=== PATIENT | male | born 1975 | race Caucasian/White ===

== ENCOUNTER 2016-04-26 18:28 | Emergency (ER) | payer OTHER ==
[2016-04-26 18:45] VITALS: BP 96/59; PULSE 97; RESP 14; O2SAT 95
[2016-04-26] MEDS ORDERED: IBUPROFEN 200 MG TAB PO ONE (19:08)
[2016-04-26] MEDS ORDERED: OSELTAMIVIR PHOSPHATE 75 MG CAP PO ONE (19:16)
[2016-04-26] MEDS ORDERED: ACETAMINOPHEN 325 MG TAB PO ONE (19:16)
[2016-04-26 19:46] LABS: COLOR YELLOW; LEUKOCYTE ESTERASE,URINE NEGATIVE (NEGATIVE); NITRITE,URINE NEGATIVE (NEGATIVE)
[2016-04-26 19:54] LABS: MUCUS 1+ /lpf (NONE-1+); RBC,URINE >182 /hpf (0-3); WBC,URINE NONE SEEN /hpf (0-3)
[2016-04-26 19:55] LABS: ANION GAP 11 mEq/L (8-16); CALCIUM 9.7 mg/dL (8.5-10.4); CARBON DIOXIDE 29 mEq/l (22-31); CHLORIDE 98 mEq/L (97-110); CREATININE 1.1 mg/dL (0.7-1.3); GLOMERULAR FILTRATION RATE > 60; GLUCOSE 105 mg/dL (70-100); POTASSIUM 3.9 mEq/L (3.5-5.2); SODIUM 138 mEq/L (134-144)
--- NOTE | 2016-04-26 20:16 | UCPHY ---
H & P Time Seen by Provider: 04/26/16 19:05 Patient Type: New HPI/ROS: This patient has nasal congestion, cough, myalgias, high fevers and fatigue. 2 family members or diagnosed with influenza over this past week. He is concerned about these symptoms because he has a history of IgA nephropathy and times of previous viral illnesses has had worsening of his nephropathy. 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 ROS: Constitutional: As per HPI with no other complaints HEENT: No facial pain. No ear pain. No throat pain. Pulmonary: No respiratory distress or pleuritic pain cardiovascular: No lightheadedness GI: No vomiting. : No hematuria noted. He does report his urine is darker than usual. He has no flank pain 10 point ROS is otherwise negative. Past Medical/Surgical History: IgA nephropathy Smoking Status: Never smoked Physical Exam: General Appearance: Pleasant male Alert, no distress. Eyes: Pupils equal and round no pallor or injection. ENT, Mouth: Mucous membranes moist. Respiratory: There are no retractions, lungs are clear to auscultation. Cardiovascular: Regular rate and rhythm. Gastrointestinal: Abdomen is soft and nontender, no masses, bowel sounds normal. Back: No CVA tenderness Neurological: Alert with no focal deficits Skin: Warm and dry, no rashes. Musculoskeletal: Neck is supple nontender. Extremities are symmetrical, full range of motion. Psychiatric: Mood and affect are normal. DIFFERENTIAL DIAGNOSIS: After history and physical exam differential diagnosis was considered for influenza, viral syndrome/flu-like illness, rule out renal insufficiency or worsening neuropathy. Constitutional: Initial Vital Signs Temperature (C) 38 C 04/26/16 18:40 Heart Rate 97 04/26/16 18:40 Respiratory Rate 14 04/26/16 18:40 Blood Pressure 96/59 L 04/26/16 18:40 O2 Sat (%) 95 04/26/16 18:40 O2 Delivery Mode Room Air Allergies/Adverse Reactions: No Known Allergies Allergy (Verified 04/26/16 18:39) Home Medications: Medication Instructions Recorded LISINOPRIL 09/13/09 Oseltamivir Phosphate [Tamiflu 75 75 mg PO BID #10 cap 04/26/16 mg (*)] Medical Decision Making ED Course/Re-evaluation: Rapid influenza is negative Urinalysis: Microscopic hematuria otherwise unremarkable I feel that the rapid influenza is inaccurate in this patient. I counseled regarding this. However, I find no evidence of significant complication regarding his IgA nephropathy. Tylenol p.o. with improvement in his symptoms and partial defervesced since. - Data Points Laboratory Results: Laboratory Results 04/26/16 19:30 Medications Given: Discontinued Medications Acetaminophen (Tylenol) 975 mg PO EDNOW ONE Stop: 04/26/16 19:17 Last Admin: 04/26/16 19:41 Dose: 975 mg Ibuprofen (Motrin) 600 mg PO EDNOW ONE Stop: 04/26/16 19:09 Last Admin: 04/26/16 19:41 Dose: Not Given Oseltamivir Phosphate (Tamiflu) 75 mg PO EDNOW ONE Stop: 04/26/16 19:17 Last Admin: 04/26/16 19:41 Dose: 75 mg Departure - Departure Disposition: Home, Routine, Self-Care Clinical Impression: Influenza, Microscopic hematuria, Hx of primary IgA nephropathy Condition: Good Instructions: Influenza (ED) Additional Instructions: Diagnoses: 1. Influenza 2. Microscopic hematuria Your kidney function is normal tonight with a normal creatinine Plan: Drink plenty fluids Tamiflu as prescribed Tylenol for fevers as needed No work until her fever has resolved for 24 hours more Return for any significant worsening despite the treatment plan Referrals: CELESTE CHAVEZ [Primary Care Provider] - As per Instructions Stand Alone Forms: Work Excuse Prescriptions: Oseltamivir Phosphate [Tamiflu 75 mg (*)] 75 mg PO BID #10 cap - PQRS PQRS Measurement: NA
[2016-04-26 20:32] VITALS: TEMP 99.8
== END 2016-04-26 20:31 | disposition home or self-care (01) ==
LOC: CED 18:28
DX: J11.1 Influenza due to unidentified influenza virus with other respiratory manifestations (principal); R31.29 Other microscopic hematuria
CPT/HCPCS: 80048-PO; 81003-PO; 81015-PO; 87400-PO; G0463-PO

== ENCOUNTER → 2016-06-28 | Outpatient (CLI) | payer OTHER | LOC: FIMAGING 07:34 | PROVIDERS: ATTEND Internal Medicine Gastroenterology | DX: N28.1 Cyst of kidney, acquired (principal) ==